=== PATIENT | female | born 2000 | race Caucasian/White ===

== ENCOUNTER → 2019-05-10 16:49 | Emergency (ER) | payer OTHER ==
[~2019-05-10 16:49] MED LIST: Iohexol 350* (CONTRAST) 500 ML MDV IV ONE
[2019-05-10 17:06] VITALS: BP 108/74
--- NOTE | 2019-05-10 20:19 | ED ---
Neurological HPI - HPI Summary HPI Summary: A 18 y/o F presents to ED c/o L-sided facial numbness and tingling onset a week ago. She says over a week ago, she turned her neck and experienced shooting L- sided neck and face pain. Associated sx: sore throat, intermittent radiating pain from L ear to L temporal scalp, head tic. She denies any recent cold and congestion. She has not had these sx previously. PCP is not local, she is a [employer] student. - History of Current Complaint Chief Complaint: EDNeurologicalDeficit Stated Complaint: TINGLING/NUMBNESS LEFT SIDE FACE, EAR PAIN PER PT Time Seen by Provider: 05/10/19 20:14 Hx Obtained From: Patient Onset/Duration: Started weeks ago, Still Present Timing: Constant Number of Seizures: 0 Pain Intensity: 0 Pain Scale Used: 0-10 Numeric Character: Numbness/Tingling - L-sided face Associated Signs and Symptoms: Positive: Pain - pos: intermittent radiating pain from L ear to L temporal scalp, Numbness, Neck Pain/Stiffness. Negative: Recent Illness - Allergy/Home Medications Allergies/Adverse Reactions: Allergies Allergy/AdvReac Type Severity Reaction Status Date / Time gluten Allergy CELIACS Verified 05/10/19 20:28 Home Medications: Home Medications NK [No Home Medications Reported] 05/10/19 [History Confirmed 05/10/19] PMH/Surg Hx/FS Hx/Imm Hx Previously Healthy: Yes Endocrine/Hematology History: Denies: Hx Diabetes Cardiovascular History: Denies: Hx Hypertension, Hx Pacemaker/ICD History: Denies: Hx Renal Disease Sensory History: Denies: Hx Hearing Aid Psychiatric History: Denies: Hx Panic Disorder - Surgical History Surgery Procedure, Year, and Place: WISDOM TEETH. TONSILS Infectious Disease History: No Infectious Disease History: Denies: Traveled Outside the [place] in Last 30 Days - Family History Known Family History: Positive: Non-Contributory - Social History Occupation: Student Lives: Alone Alcohol Use: Occasionally Hx Substance Use: No Substance Use Type: Reports: None Hx Tobacco Use: No Smoking Status (MU): Never Smoked Tobacco Review of Systems Positive: Sore Throat Musculoskeletal: Other - pos: neck pain; intermittent radiating pain from L ear to L temporal scalp Positive: Other - pos: head tic Positive: Numbness - and tingling to L face All Other Systems Reviewed And Are Negative: Yes Physical Exam - Summary Physical Exam Summary: Appearance: The patient is well-nourished in no acute distress and in no acute pain. Skin: The skin is warm and dry and skin color reflects adequate perfusion. HEENT: The head is normocephalic and atraumatic. The pupils are equal and reactive. The conjunctivae are clear and without drainage. Nares are patent and without drainage. Mouth reveals moist mucous membranes and the throat is without erythema and exudate. The external ears are intact. The ear canals are patent and without drainage. The tympanic membranes are intact. Neck: the neck is supple with full range of motion and non-tender. There are no carotid bruits. There is no neck vein distension. Respiratory: Chest is non-tender. Lungs are clear to auscultation and breath sounds are symmetrical and equal. Cardiovascular: Heart is regular rate and rhythm. There is no murmur or rub auscultated. There is no peripheral edema and pulses are symmetrical and equal. Abdomen: The abdomen is soft and non-tender. There are normal bowel sounds heard in all four quadrants and there is no organomegaly palpated. Musculoskeletal: There is no back tenderness noted. Extremities are non-tender with full range of motion. There is good capillary refill. There is no peripheral edema or calf tenderness elicited. Neurological: Patient is alert and oriented to person, place and time. The patient has symmetrical motor strength in all four extremities. Cranial nerves are grossly intact. Deep tendon reflexes are symmetrical and equal in all four extremities. Psychiatric: The patient has an appropriate affect and does not exhibit any anxiety or depression. Triage Information Reviewed: Yes Vital Signs On Initial Exam: Initial Vitals Temp Pulse Resp BP Pulse Ox 97.8 F 61 16 108/74 99 05/10/19 17:01 05/10/19 17:01 05/10/19 17:01 05/10/19 17:01 05/10/19 17:01 Vital Signs Reviewed: Yes - [place] Coma Scale Best Eye Response: 4 - Spontaneous Best Motor Response: 6 - Obeys Commands Best Verbal Response: 5 - Oriented Coma Scale Total: 15 Diagnostics - Vital Signs Vital Signs Temp Pulse Resp BP Pulse Ox 05/10/19 17:01 97.8 F 61 16 108/74 99 - Laboratory Result Diagrams: 05/10/19 20:48 05/10/19 20:48 Lab Statement: Any lab studies that have been ordered have been reviewed, and results considered in the medical decision making process. Course/Dx - Course Course Of Treatment: Lyly presented with a week of symptoms. It seemed to start with some pain in the back of the left side of her neck. Some of her symptoms are listed in the HPI. Some of the symptoms have been intermittent. She has had left preauricular pain which is non-lancinating and waxing and waning. She has had no weakness of her facial muscles. She has some popping of her left ear with swallowing just today. Her left upper eywlid feels swollen. Her neck feels tight. Her exam was unremarkable except for some mild left upper lid swelling versus ptosis. I am at a loss to explain her symptoms and I let her and her father know. I obtained a CTA because of the original neck pain and the possible ptosis. It was negative. This could be an early Centeno's but she has had symptoms for a week amking that less likely. A Lyme titer was sent. I recommended close F/U with [facility]. - Diagnoses Provider Diagnoses: Facial pain Discharge - Sign-Out/Discharge Documenting (check all that apply): Patient Departure Patient Received Moderate/Deep Sedation with Procedure: No - Discharge Plan Condition: Stable Disposition: HOME Patient Education Materials: Paresthesia (ED) Referrals: [facility] - Rick BONILLA [Stir, APPLICATION, OTHER] - Julia Shelby MD [Primary Care Provider] - Additional Instructions: PLEASE RETURN TO THE ED IMMEDIATELY FOR WORSENING OR CONCERNING SYMPTOMS. FOLLOW UP WITH YOUR PRIMARY CARE PHYSICIAN WITH THREE DAYS. - Billing Disposition and Condition Condition: STABLE Disposition: Home - Attestation Statements Document Initiated by Scribe: Yes Documenting Scribe: Dorothy Schwartz Provider For Whom Hanhibe is Documenting (Include Credential): Dr. Eric Bartholomew MD Scribe Attestation: IDorothy scribed for Dr. Eric Bartholomew MD on 05/11/19 at 1224. Scribe Documentation Reviewed: Yes Provider Attestation: The documentation as recorded by the Dorothy rodriguez accurately reflects the service I personally performed and the decisions made by me, Dr. Eric Bartholomew MD Status of Scribe Document: Viewed
[2019-05-10 20:58] LABS: ABS Eosinophils 0.3 10^3/ul (0-0.6); ABS Lymphocytes 2.8 10^3/ul (1.0-4.8); ABS Monocytes 0.8 10^3/ul (0-0.8); ABS Neutrophils 2.9 10^3/ul (1.5-7.7); Eosinophil % 4.8 %; Hematocrit 44 % (35-47); Hemoglobin 14.2 g/dL (12.0-16.0); Lymphocyte % 41.2 %; Mean Corpuscular HGB Conc 33 g/dL (31-36); Mean Corpuscular Hemoglobin 29 pg (27-31); Mean Corpuscular Volume 90 fL (80-97); Mean Platelet Volume 7.7 fL (7.4-10.4); Nucleated Red Blood Cells % 0.1; Platelet Count 247 10^3/uL (150-450); Red Blood Count 4.84 10^6 /uL (3.70-4.87); Red Cell Distribution Width 14 % (10-15); White Blood Count 6.9 10^3/uL (3.5-10.8)
[2019-05-10 21:16] LABS: ALT 21 U/L (7-52); AST 27 U/L (13-39); Albumin 4.5 g/dL (3.2-5.2); Albumin/Globulin Ratio 1.7 (1-3); Alkaline Phosphatase 75 U/L (34-104); Anion Gap 4 mmol/L (2-11); BUN/Creatinine Ratio 21.3 (8-20); Blood Urea Nitrogen 17 mg/dL (6-24); C Reactive Protein < 1.00 mg/L (<8.01); CO2 Carbon Dioxide 31 mmol/L (22-32); Calcium 9.3 mg/dL (8.6-10.3); Chloride 103 mmol/L (101-111); EGFR African American 111.8 (>60); EGFR Non-African American 92.4 (>60); Globulin 2.7 g/dL (2-4); Glucose 86 mg/dL (70-100); Potassium 3.7 mmol/L (3.5-5.0); Sodium 138 mmol/L (135-145); Total Protein 7.2 g/dL (6.4-8.9)
[2019-05-10 21:21] LABS: HCG Pregnancy < 0.60 mIU/mL
[2019-05-13 18:43] LABS: B garinii/B afzelii PCR Negative (Negative); B mayonii PCR Negative (Negative)
== END | disposition home or self-care (01) ==
LOC: ED 16:49
DX: G50.1 Atypical facial pain (principal); J02.9 Acute pharyngitis, unspecified; M54.2 Cervicalgia; H92.02 Otalgia, left ear; R20.0 Anesthesia of skin; R20.2 Paresthesia of skin
CPT/HCPCS: 36415; 70450; 70496; 70498; 80053; 84702; 85025; 86140; 87476; 87798; 99282; Q9967

== ENCOUNTER 2019-05-21 14:46 | Emergency (ER) | payer OTHER ==
[2019-05-21 15:44] LABS: Urine Appearance Cloudy; Urine Bilirubin Negative (Negative); Urine Blood Negative (Negative); Urine Color Straw; Urine Glucose Negative (Negative); Urine Ketones Negative (Negative); Urine Nitrite Negative (Negative); Urine Protein Negative (Negative); Urine Specific Gravity 1.006 (1.010-1.030); Urine Urobilinogen Negative (Negative)
[2019-05-21] MEDS ORDERED: NS 0.9% 1000 ML** 1,000 ML IV ONE (21:34)
--- NOTE | 2019-05-21 21:34 | ED ---
Abdominal Pain/Female - HPI Summary HPI Summary: This pt is a 18 y/o female [facility] c/o lower abdominal pain since last week. Pt describes feeling her abdomen "bulging and heavy." Additionally notes urinary frequency, "can't hold it anymore," and when eating she feels bubbles going up her heart. Her last bowel movement was this morning. Denies vaginal bleeding or discharge, nausea, vomiting, diarrhea. Pt does not take any medications at home. LMP: 3 weeks ago. No control pills. Pt is sexually active. Pt is anxious at bedside. She was seen in the ED on 05/10/19 for headache and left sided tingling, pt had CT and CTA that both resulted negative. - History of Current Complaint Chief Complaint: EDAbdPain Stated Complaint: PELVIC PAIN Time Seen by Provider: 05/21/19 21:25 Hx Obtained From: Patient Onset/Duration: Lasting Days, Still Present Timing: Days Severity Currently: Severe Pain Intensity: 8 Pain Scale Used: 0-10 Numeric Location: Other - lower abd Radiates: No Character: Other: - "bulging and heavy" Aggravating Factor(s): Nothing Alleviating Factor(s): Nothing Associated Signs and Symptoms: Positive: Other: - POSITIVE: urinary frequency. Negative: Fever, Vaginal Bleeding, Vaginal Discharge, Nausea, Vomiting, Diarrhea Allergies/Adverse Reactions: Allergies Allergy/AdvReac Type Severity Reaction Status Date / Time gluten Allergy CELIACS Verified 05/10/19 20:28 PMH/Surg Hx/FS Hx/Imm Hx Endocrine/Hematology History: Denies: Hx Diabetes Cardiovascular History: Denies: Hx Hypertension, Hx Pacemaker/ICD History: Denies: Hx Renal Disease Sensory History: Denies: Hx Hearing Aid Psychiatric History: Denies: Hx Panic Disorder - Surgical History Surgical History: Yes Surgery Procedure, Year, and Place: WISDOM TEETH. TONSILS Infectious Disease History: No Infectious Disease History: Denies: Traveled Outside the [place] in Last 30 Days - Family History Known Family History: Negative: Cardiac Disease - Social History Alcohol Use: Occasionally Hx Substance Use: No Substance Use Type: Reports: None Hx Tobacco Use: No Smoking Status (MU): Never Smoked Tobacco Review of Systems Negative: Fever Positive: Abdominal Pain. Negative: Vomiting, Diarrhea, Nausea Positive: frequency. Negative: discharge, other - vaginal bleeding Positive: Anxious All Other Systems Reviewed And Are Negative: Yes Physical Exam - Summary Physical Exam Summary: VITAL SIGNS: Reviewed. GENERAL: Patient is a well-developed and nourished female who is anxious. Patient is not in any acute respiratory distress. Patient is compulsive and anxious with multiple complaints. HEAD AND FACE: No signs of trauma. No ecchymosis, hematomas or skull depressions. No sinus tenderness. EYES: PERRLA, EOMI x 2, No injected conjunctiva, no nystagmus. EARS: Hearing grossly intact. Ear canals and tympanic membranes are within normal limits. MOUTH: Oropharynx within normal limits. NECK: Supple, trachea is midline, no adenopathy, no JVD, no carotid bruit, no c- spine tenderness, neck with full ROM. CHEST: Symmetric, no tenderness at palpation LUNGS: Clear to auscultation bilaterally. No wheezing or crackles. CVS: Regular rate and rhythm, S1 and S2 present, no murmurs or gallops appreciated. ABDOMEN: Soft, non-tender. Mild abdominal distension with hyperactive bowel sounds. No rebound no guarding, and no masses palpated. EXTREMITIES: FROM in all major joints, no edema, no cyanosis or clubbing. NEURO: Alert and oriented x 3. No acute neurological deficits. Speech is normal and follows commands. SKIN: Dry and warm Triage Information Reviewed: Yes Vital Signs On Initial Exam: Initial Vitals Temp Pulse Resp BP Pulse Ox 98.6 F 95 16 148/106 94 05/21/19 14:52 05/21/19 14:52 05/21/19 14:52 05/21/19 14:52 05/21/19 14:52 Vital Signs Reviewed: Yes Diagnostics - Vital Signs Vital Signs Temp Pulse Resp BP Pulse Ox 05/21/19 20:26 98.6 F 79 20 123/82 98 05/21/19 18:11 97.5 F 89 16 122/78 99 05/21/19 16:29 97.4 F 77 16 121/76 99 05/21/19 14:52 98.6 F 95 16 148/106 94 - Laboratory Lab Results: Lab Results 05/21/19 Range/Units 15:19 Urine Color Straw Urine Appearance Cloudy Urine pH 7.0 (5-9) Ur Specific [place] 1.006 L (1.010-1.030) Urine Protein Negative (Negative) Urine Ketones Negative (Negative) Urine Blood Negative (Negative) Urine Nitrate Negative (Negative) Urine Bilirubin Negative (Negative) Urine Urobilinogen Negative (Negative) Ur Leukocyte Esterase Negative (Negative) Urine Glucose Negative (Negative) Result Diagrams: 05/21/19 21:47 05/21/19 21:47 Lab Statement: Any lab studies that have been ordered have been reviewed, and results considered in the medical decision making process. - Ultrasound No standard instances Ultrasound Interpretation Completed By: Radiologist Summary of Ultrasound Findings: Pelvic US IMPRESSION: Complex left ovarian cyst. Dr. Nicole has reviewed this report. Abdominal Pain Fem Course/Dx - Course Course Of Treatment: Pt is a 18 y/o female presenting to [facility] c/o lower abdominal pain since last week. Pt describes feeling her abdomen "bulging and heavy." Additionally notes urinary frequency, "can't hold it anymore," and when eating she feels bubbles going up her heart. Her last bowel movement was this morning. Denies vaginal bleeding or discharge, nausea, vomiting, diarrhea. Test results without any significant abnormality. Pelvic US IMPRESSION: Complex left ovarian cyst. In the ED course the pt was given IV fluids, Ativan , Toradol. Pt will be discharged home with follow up from her PCP. She was given a prescription for Motrin and was advised to increase fiber intake. She was given instructions to return to the ED for any worsening or new symptoms. - Diagnoses Provider Diagnoses: Complex cyst of left ovary, IBS (irritable bowel syndrome) Discharge - Sign-Out/Discharge Documenting (check all that apply): Patient Departure - Discharge home Patient Received Moderate/Deep Sedation with Procedure: No - Discharge Plan Condition: Stable Disposition: HOME Prescriptions: Ibuprofen TAB* [Motrin TAB* 600 MG] 600 mg PO Q6H PRN #30 tab PRN Reason: Pain Patient Education Materials: Ovarian Cyst (ED), Irritable Bowel Syndrome (ED) Referrals: Julia Shelby MD [Primary Care Provider] - Additional Instructions: Increase fiber intake. Please follow up with your primary care provider in 1-2 days. RETURN TO EMERGENCY DEPARTMENT FOR ANY NEW OR WORSENING SYMPTOMS. - Attestation Statements Document Initiated by Scribe: Yes Documenting Scribe: Nara Tejeda Provider For Whom Scribe is Documenting (Include Credential): Rashi Nicole MD Scribe Attestation: Nara Juares, scribed for Rashi Nicloe MD on 05/22/19 at 0417. Status of Scribe Document: Ready
[2019-05-21] MEDS ORDERED: LORazepam INJ* 2 MG/ML 1 ML VIAL IV PUSH ONE (21:35)
[2019-05-21] MEDS ORDERED: Lorazepam PYXIS KEY PRN (21:35)
[2019-05-21] MEDS ORDERED: Lorazepam PYXIS KEY ONE (21:46)
[2019-05-21 21:54] LABS: ABS Eosinophils 0.1 10^3/ul (0-0.6); ABS Lymphocytes 2.3 10^3/ul (1.0-4.8); ABS Monocytes 0.9 10^3/ul (0-0.8); ABS Neutrophils 4.7 10^3/ul (1.5-7.7); Eosinophil % 1.5 %; Hematocrit 43 % (35-47); Lymphocyte % 28.9 %; Mean Corpuscular HGB Conc 33 g/dL (31-36); Mean Corpuscular Hemoglobin 29 pg (27-31); Mean Corpuscular Volume 89 fL (80-97); Mean Platelet Volume 7.7 fL (7.4-10.4); Platelet Count 262 10^3/uL (150-450); Red Blood Count 4.82 10^6 /uL (3.70-4.87); Red Cell Distribution Width 14 % (10-15); White Blood Count 8.1 10^3/uL (3.5-10.8)
[2019-05-21 22:11] LABS: ALT 17 U/L (7-52); AST 23 U/L (13-39); Albumin 4.6 g/dL (3.2-5.2); Albumin/Globulin Ratio 1.8 (1-3); Alkaline Phosphatase 62 U/L (34-104); Amylase 69 U/L (29-103); Anion Gap 6 mmol/L (2-11); BUN/Creatinine Ratio 14.5 (8-20); Blood Urea Nitrogen 11 mg/dL (6-24); C Reactive Protein < 1.00 mg/L (<8.01); CO2 Carbon Dioxide 29 mmol/L (22-32); Calcium 9.4 mg/dL (8.6-10.3); Chloride 105 mmol/L (101-111); EGFR African American 118.6 (>60); Globulin 2.5 g/dL (2-4); Glucose 119 mg/dL (70-100); Magnesium 2.2 mg/dL (1.9-2.7); Potassium 3.6 mmol/L (3.5-5.0); Sodium 140 mmol/L (135-145); Total Protein 7.1 g/dL (6.4-8.9)
[2019-05-21 22:17] LABS: HCG Pregnancy < 0.60 mIU/mL
[2019-05-22] MEDS ORDERED: Ketorolac INJ* 15 MG/ML 1 ML VIAL IV PUSH ONE (01:37)
[2019-05-22 01:56] VITALS: BP 117/77
== END 2019-05-22 02:36 | disposition home or self-care (01) ==
LOC: ED 14:46
DX: N83.292 Other ovarian cyst, left side (principal); K58.9 Irritable bowel syndrome, unspecified
CPT/HCPCS: 36415; 76856; 80053; 81003; 82150; 83690; 83735; 84702; 85025; 86140; 96361; 96374; 96375; 99284; J1885; J2060